=== PATIENT | female | born 1995 | race Caucasian/White ===

== ENCOUNTER 2022-05-25 18:16 | Outpatient (REF) | payer OTHER, SELFPAY ==
[2022-05-27 11:02] LABS: COVID-19 RT-PCR UVMMC Result Negative (Negative)
== END 2022-05-25 18:17 | disposition home or self-care (01) ==
LOC: LBN 18:16
PROVIDERS: Visit Provider Physician Assistant Medical
DX: Z20.822 Contact with and (suspected) exposure to COVID-19 (principal); J02.9 Acute pharyngitis, unspecified
CPT/HCPCS: U0003; 87070

== ENCOUNTER 2022-06-22 16:00 | Outpatient (REF) | payer OTHER, SELFPAY ==
[2022-06-22 21:10] LABS: HCT 42.9 % (36.0-46.0); HGB 14.5 g/dL (11.2-15.7); MCH 31.8 pg (27.0-33.0); MCHC 33.8 % (32.0-36.0); MCV 94 fL (80-95); MPV 11.2 fL (8.0-11.0); Platelet Count 243 10^3/uL (130-400); RBC 4.56 10^6/uL (3.93-5.22); RDW 11.9 % (11.7-14.6); RDW-SD 41.3 fL; WBC 6.96 10^3/uL (4.4-10.8)
[2022-06-22 21:25] LABS: Hemoglobin A1C 4.9 % (<5.7)
[2022-06-22 21:32] LABS: Anion Gap 8.3 mmol/L (3-11); BUN 8 mg/dL (7-18); CO2 25.7 mmol/L (21.0-32.0); CREATININE 0.8 mg/dL (0.55-1.02); Calcium 9.5 mg/dL (8.5-10.1); Chloride 107 mmol/L (98-107); Estimated GFR 102.86 (mL/min/1.73m2); Glucose 89 mg/dL (74-106); Potassium 4.9 mmol/L (3.5-5.1); Sodium 141 mmol/L (136-145)
== END 2022-06-22 16:01 | disposition home or self-care (01) ==
LOC: NCHCN 16:00
PROVIDERS: Visit Provider Nurse Practitioner Family
DX: K20.0 Eosinophilic esophagitis (principal); G47.9 Sleep disorder, unspecified; Z13.1 Encounter for screening for diabetes mellitus
CPT/HCPCS: 80048; 85027; 83036; 84443

== ENCOUNTER 2022-06-29 16:21 | Outpatient (REF) | payer OTHER, SELFPAY ==
[2022-07-01 11:55] LABS: COVID-19 RT-PCR UVMMC Result Negative (Negative)
== END 2022-06-29 16:22 | disposition home or self-care (01) ==
LOC: LBN 16:21
PROVIDERS: Visit Provider Physician Assistant Medical
DX: Z20.822 Contact with and (suspected) exposure to COVID-19 (principal); R05.8 Other specified cough
CPT/HCPCS: U0003

== ENCOUNTER 2022-08-03 17:06 | Outpatient (CLI) | payer OTHER, SELFPAY ==
--- NOTE | 2022-08-03 | DI.RAD_ITS ---
Exam(s) XR WRIST RT COMPL NAVICULAR EXAM: XR WRIST RT COMPL NAVICULAR CLINICAL HISTORY: RT WRIST PAIN, M25.531,FELL ON OUTSTRETCHED HAND,? FX. TECHNIQUE: 2D digital imaging was performed. COMPARISON: No exams were available for comparison FINDINGS: Four views: No obvious fractures. However, on the lateral view there is a tiny 1 millimeter osteophytic density seen dorsally. This may represent a small fracture avulsion off the triquetrum. No obvious scaphoid fracture evident. Scapholunate distance is normal. Bone density normal. No osseous lesions. IMPRESSION: Subtle 1 millimeter calcific density noted dorsally which may be a subtle fracture fragment, such is off the dorsal triquetrum DATA REPOSITORY: RADIATION DOSE DELIVERED:
== END 2022-08-03 17:26 ==
PROVIDERS: PCP Nurse Practitioner Family; Visit Provider Physician Assistant Medical
DX: R93.7 Abnormal findings on diagnostic imaging of other parts of musculoskeletal system (principal)
CPT/HCPCS: 73110

== ENCOUNTER 2022-08-23 09:18 | Outpatient (CLI) | payer OTHER, SELFPAY ==
--- NOTE | 2022-08-23 08:00 | DI.RAD_ITS ---
Exam(s) XR WRIST RT LIMITED EXAM: XR WRIST RT LIMITED CLINICAL HISTORY: right wrist pain. TECHNIQUE: 2D digital imaging was performed of the right wrist. Two views were obtained. PA and la teral views were obtained. COMPARISON: CR XR WRIST RT COMPL NAVICULAR from 08/03/2022 FINDINGS: BONES: The tiny density on the dorsum of the wrist is again seen and unchanged. No new fracture or d islocation is appreciated. No bony destructive lesion is seen. JOINTS: The carpal bones are normally aligned. SOFT TISSUE: Normal. IMPRESSION: Stable tiny density at the dorsum of the wrist which may represent a avulsed triquetral fracture. DATA REPOSITORY: RADIATION DOSE DELIVERED:
== END 2022-08-23 09:19 | disposition home or self-care (01) ==
LOC: DIORS 09:18
PROVIDERS: PCP Nurse Practitioner Family; Referring Provider Nurse Practitioner Family; Visit Provider Student in an Organized Health Care Education/Training Program
DX: M25.531 Pain in right wrist (principal); S62.111A Displaced fracture of triquetrum [cuneiform] bone, right wrist, initial encounter for closed fracture
CPT/HCPCS: 73100

== ENCOUNTER 2022-10-05 00:48 | Outpatient (CLI) | payer OTHER, SELFPAY ==
--- NOTE | 2022-10-05 07:30 | DI.MRI_ITS ---
Exam(s) MR UPPER JOINT RT WO EXAM: MR UPPER JOINT RT WO CLINICAL HISTORY: pain, injury,FX TRIQUESTRAL BONE RT WRIST,S62.111A. TECHNIQUE: Multiplanar multisequence MRI was performed. COMPARISON: Comparison is made with prior examinations. FINDINGS: BONES: There is mild edema seen in the dorsal aspect of the scaphoid. There is also mild marrow christi a seen in the triquetral bone. JOINTS: The radiocarpal joint is unremarkable. The carpal joints are unremarkable. TENDONS: Flexors: Unremarkable. Extensors: Unremarkable. MUSCLES: Unremarkable. MEDIAN NERVE: Unremarkable on this noncontrast examination. ULNAR NERVE: Unremarkable on this noncontrast examination. SOFT TISSUES: There is mild edema in the soft tissues on the dorsum of the wrist, posterior to the pr oximal carpal row. No focal fluid collection is seen. LIGAMENTS: The scapholunate ligament anteriorly is indistinct and a partial tear cannot be excluded. TRIANGULAR FIBROCARTILAGE: Unremarkable. OTHER: IMPRESSION: 1. Indistinct appearance of the scapholunate ligament anteriorly in partial tear should be considered . 2. Mild edema seen in the dorsal aspect of the scaphoid and triquetral bone. 3. Mild edema in the soft tissues on the dorsum of the wrist adjacent to the proximal carpal row. No focal fluid collection is seen. DATA REPOSITORY:
== END 2022-10-05 01:08 ==
LOC: DI 00:49
PROVIDERS: PCP Nurse Practitioner Family; Visit Provider Student in an Organized Health Care Education/Training Program
DX: S62.111A Displaced fracture of triquetrum [cuneiform] bone, right wrist, initial encounter for closed fracture (principal)
CPT/HCPCS: 73221

== ENCOUNTER 2022-12-12 15:03 | Outpatient (REF) | payer BC, SELFPAY ==
[2022-12-14 10:00] LABS: HBs Antibody, Quant 32.8 mIU/mL (See Note); Hepatitis B Surface Ab Positive (See Note)
== END 2022-12-12 15:04 | disposition home or self-care (01) ==
LOC: NCHCN 15:03
PROVIDERS: PCP Nurse Practitioner Family; Visit Provider Nurse Practitioner Family
DX: Z13.89 Encounter for screening for other disorder (principal); Z01.84 Encounter for antibody response examination
CPT/HCPCS: 86706

== ENCOUNTER 2023-01-09 15:30 | Outpatient (REF) | payer BC, SELFPAY | END 2023-01-09 15:31 | disposition home or self-care (01) | LOC: LBN 15:30 | PROVIDERS: PCP Nurse Practitioner Family; Visit Provider Physician Assistant Medical | DX: Z13.9 Encounter for screening, unspecified (principal) | CPT/HCPCS: 87480; 87510; 87660 ==

== ENCOUNTER 2023-03-13 19:38 | Outpatient (REF) | payer BC, SELFPAY ==
[2023-03-13 14:45] LABS: Source Nasal/Nares
[2023-03-13 15:51] LABS: Abs Immature Grans 0.03 10^3/uL (0.0-0.06); Absolute Basophil Count 0.03 10^3/uL (0.0-0.2); Absolute Eosinophil Count 0.09 10^3/uL (0.0-0.7); Absolute Lymphocyte Count 1.81 10^3/uL (1.2-3.4); Absolute Neutrophil Count 6.68 10^3/uL (1.2-6.7); Basophils % 0.3; HGB 15.3 g/dL (11.2-15.7); Immature Grans % 0.3; Lymphocytes % 19.6; MCH 31.9 pg (27.0-33.0); MCV 94 fL (80-95); MPV 10.7 fL (8.0-11.0); Monocytes % 6.5; Neutrophils % 72.3; Platelet Count 270 10^3/uL (130-400); RBC 4.79 10^6/uL (3.93-5.22); RDW 11.7 % (11.7-14.6); RDW-SD 40.3 fL; WBC 9.24 10^3/uL (4.4-10.8)
[2023-03-13 16:16] LABS: ALT 24 U/L (14-59); AST 17 U/L (15-37); Albumin 4.5 g/dL (3.4-5.0); Alkaline Phosphatase 77 U/L (46-116); Anion Gap 10.5 mmol/L (3-11); BUN 15 mg/dL (7-18); Bilirubin, Total 1.2 mg/dL (0.2-1.0); CO2 27.5 mmol/L (21.0-32.0); CREATININE 0.8 mg/dL (0.55-1.02); Calcium 9.6 mg/dL (8.5-10.1); Chloride 100 mmol/L (98-107); Estimated GFR 102.22 (mL/min/1.73m2); Glucose 94 mg/dL (74-106); Lipase 32 U/L (16-77); Potassium 3.9 mmol/L (3.5-5.1); Sodium 138 mmol/L (136-145); Total Protein 8.1 g/dL (6.4-8.2)
[2023-03-13 17:29] LABS: COVID-19 PCR Negative (Negative)
== END 2023-03-13 19:39 | disposition home or self-care (01) ==
LOC: LBN 19:38
PROVIDERS: PCP Nurse Practitioner Family; Visit Provider Physician Assistant Medical
DX: R11.2 Nausea with vomiting, unspecified (principal); J02.9 Acute pharyngitis, unspecified; Z20.822 Contact with and (suspected) exposure to COVID-19
CPT/HCPCS: 80053; 83690; 87635; 85025; 87070

== ENCOUNTER → 2023-12-30 03:12 | Outpatient (CLI) | payer OTHER, SELFPAY ==
--- NOTE | 2023-12-30 | DI.MRI_ITS ---
Exam(s) MR UPPER JOINT RT WO EXAM: MR UPPER JOINT RT WO CLINICAL HISTORY: PAIN OF R SHOULDER, M25.511,? rotator cuff tear,pain despite ct. TECHNIQUE: Multiplanar multisequence MRI was performed. COMPARISON: No exams were available for comparison FINDINGS: BONES: There is no fracture or contusion pattern. JOINTS: The acromioclavicular joint is normal. The glenohumeral joint is normal. No joint effusion. TENDONS: Supraspinatus: No evidence of a supraspinatus tendon tear. There may be mild tendinosis of the supra spinatus tendon. Infraspinatus: Unremarkable. Subscapularis: Unremarkable. Teres Minor: Unremarkable. Biceps and [place]: Unremarkable. MUSCLES: Unremarkable. GLENOID LABRUM: Diminutive anterior superior labrum. The labrum is otherwise unremarkable on this no ncontrast examination. SOFT TISSUES: Unremarkable. LIGAMENTS: There is thickening of the middle glenohumeral ligament. This can be related to a sprain. Anterior superior labrum appears diminutive. This may be part of the [place] complex. OTHER: Subacromial and subdeltoid bursae are unremarkable. IMPRESSION: 1. No evidence of a rotator cuff tear. 2. No evidence of a labral tear on this noncontrast examination. 3. Thickening of the middle glenohumeral ligament which can be seen with a sprain. Please see the ab cline discussion for complete details. DATA REPOSITORY:
== END ==
PROVIDERS: PCP Nurse Practitioner Family; Visit Provider Nurse Practitioner Family
DX: M25.511 Pain in right shoulder (principal)
CPT/HCPCS: 73221

== ENCOUNTER 2024-01-15 15:05 | Outpatient (CLI) | payer OTHER, SELFPAY ==
--- NOTE | 2024-01-15 14:45 | DI.RAD_ITS ---
Exam(s) XR SHOULDER RT COMPLETE 2+V EXAM: XR SHOULDER RT COMPLETE 2+V CLINICAL HISTORY: right AC joint pain. TECHNIQUE: 2D digital imaging was performed. Two views. COMPARISON: No exams were available for comparison FINDINGS: BONES: No acute fracture is present. No bony destructive lesion is seen. JOINTS: No dislocation present. SOFT TISSUE: Normal. IMPRESSION: Unremarkable radiographs of the right shoulder. DATA REPOSITORY: RADIATION DOSE DELIVERED:
== END 2024-01-15 15:06 | disposition home or self-care (01) ==
LOC: DIORS 15:06
PROVIDERS: PCP Nurse Practitioner Family; Visit Provider Physician Assistant
DX: M25.511 Pain in right shoulder (principal)
CPT/HCPCS: 73030

== ENCOUNTER 2024-09-09 10:57 | Emergency (ER) | payer OTHER, SELFPAY ==
[2024-09-09] VITALS (83 sets, daily range): BP systolic 117–147; BP diastolic 71–99; PULSE 78–102; RESP 16–20; TEMP 36.5–36.6; O2SAT 87–100
--- NOTE | 2024-09-09 11:00 | DI.RAD_ITS ---
Exam(s) XR HAND RT COMPLETE EXAM: XR HAND RT COMPLETE CLINICAL HISTORY: dog bite dorsal aspect. TECHNIQUE: 2D digital imaging was performed of the right hand. Three images were obtained. AP, late ral and oblique views were obtained. COMPARISON: CR XR WRIST RT COMPL NAVICULAR from 08/03/2022 CR XR WRIST RT LIMITED from 08/23/2022 FINDINGS: BONES: No acute fracture is present. No bony destructive lesion is seen. JOINTS: No dislocation present. SOFT TISSUE: There is soft tissue swelling seen around the 1st and 2nd metacarpophalangeal joints. S mall pockets of air are seen in the soft tissues. No radiopaque foreign bodies are seen. IMPRESSION: No acute fracture or dislocation. No radiopaque foreign bodies. DATA REPOSITORY: RADIATION DOSE DELIVERED:
--- NOTE | 2024-09-09 11:00 | DI.RAD_ITS ---
Exam(s) XR THUMB LT EXAM: XR THUMB LT EXAM DATE/TIME: CLINICAL HISTORY: dog bite. TECHNIQUE: 2D digital imaging was performed of the left finger. Three views were obtained. PA/AP, oblique, and lateral views were obtained. COMPARISON: None. FINDINGS: BONES: No acute fracture is present. No bony destructive lesion is seen. JOINTS: No dislocation is present. SOFT TISSUE: There is soft tissue swelling of the thumb. No radiopaque foreign body or soft tissue g as is seen. IMPRESSION: No evidence of acute fracture or dislocation. DATA REPOSITORY: RADIATION DOSE DELIVERED:
[2024-09-09] MEDS: MORPHine IR 15 MG TAB PO (11:26)
[2024-09-09] MEDS: Acetaminophen 325 MG TAB 650 MG PO (11:55)
[2024-09-09] MEDS: HYDROmorphone 2 MG/ML SYR 1 MG IM (13:16)
[2024-09-09] MEDS: Lidocaine 1% Multi-Dose 50 ML VIAL (13:27)
[2024-09-09] MEDS: Ondansetron O.D.T. 4 MG TABEF PO (14:12)
[2024-09-09] MEDS: Amoxicillin 875/Clav. 125 TAB PO (15:02)
--- NOTE | 2024-09-09 15:40 | ED.GENADUL_ITS ---
Discharge Plan Disposition Patient Disposition: Home Condition: Stable Discharge Details Clinical Impression: Dog bite of multiple sites of right hand and fingers, Dog bite of multiple sites of left hand and fingers Primary Care Provider: Stella Fregoso ED Provider: Mabel Don Home Meds and New Rx's Prescriptions: New amoxicillin-pot clavulanate 875-125 mg tablet 1 tab PO BID Qty: 20 0RF oxycodone-acetaminophen [Percocet] 5-325 mg tablet 1 tab PO Q6H PRNQty: 10 0RF Continued Liletta 20.4 mcg/24 hr (8 yrs) 52 mg intrauterine device 1 device intrauterine ONCE Rx Instructions: as a single dose ondansetron HCl 4 mg tablet 4 mg PO ONCE PRN rizatriptan 5 mg tablet 5 mg PO ONCE Rx Instructions: may repeat once after at least 2 hours cetirizine 10 mg tablet 10 mg PO DAILY PRN triamcinolone acetonide 55 mcg/actuation aerosol 1 mcg intranasal DAILY famotidine 10 mg tablet 10 mg PO DAILY lamotrigine [Lamictal] 100 mg tablet 100 mg PO BID Qty: 7 0RF Discharge Instructions Instructions: Animal Bites ED Additional Instructions: Change your dressing every 48 hours take the antibiotic as prescribed Follow-up with orthopedics this week for reassessment You did have injury to muscle, strength and sensation are preserved this is reassuring Take ibuprofen per package instructions as needed for pain and Tylenol for breakthrough pain, I did order Percocet, please do not exceed 1 g of Tylenol daily Keep your hands dry and refrain from submerging in water Your sutures will need to be removed in 12 days, please return immediately with spreading redness, worsening pain fever or chills refrain From moving your left thumb is much as possible until it is begins to heal Stand Alone Forms: Work Release Referrals: Stella Fregoso [Primary Care Provider] - Harsh Grewal MD [ [facility] STAFF PHYSICIAN] - 2 days HPI General Date/Time Provider Initiated Documentation: 09/09/24 11:09 . HPI Narrative: The patient is a 28-year-old female who presents following a dog bite. She was working on a puzzle toy with her dog when he attempted to grab a treat and bit her hands bilaterally. She reports that the dog is up-to-date with its rabies vaccinations, and she herself is current with her tetanus shots. She does not report any additional injuries. Related Data Home Medications ?Medication ?Instructions ?Recorded ?Confirmed cetirizine 10 mg tablet 10 mg PO DAILY PRN 07/06/22 09/09/24 ondansetron HCl 4 mg tablet 4 mg PO ONCE PRN 07/06/22 09/09/24 rizatriptan 5 mg tablet 5 mg PO ONCE 07/06/22 09/09/24 triamcinolone acetonide 55 1 mcg intranasal DAILY 07/06/22 09/09/24 mcg/actuation nasal spray,aerosol famotidine 10 mg tablet 10 mg PO DAILY 08/07/22 09/09/24 levonorgestrel 20.4 mcg/24 hr (up 1 device intrauterine ONCE 04/01/24 09/09/24 to 8 yrs) 52 mg intrauterine device (Liletta) lamotrigine 100 mg tablet 100 mg PO BID #7 tabs 06/16/24 09/09/24 (Lamictal) amoxicillin 875 mg-potassium 1 tab PO BID #20 tabs 09/09/24 clavulanate 125 mg tablet oxycodone-acetaminophen 5 mg-325 1 tab PO Q6H PRN #10 tabs 25 mg tablet (Percocet) Previous Rx's ?Medication ?Instructions ?Recorded lamotrigine 100 mg tablet 100 mg PO BID #7 tabs 06/16/24 (Lamictal) amoxicillin 875 mg-potassium 1 tab PO BID #20 tabs 09/09/24 clavulanate 125 mg tablet oxycodone-acetaminophen 5 mg-325 1 tab PO Q6H PRN #10 tabs 25 mg tablet (Percocet) Allergies Allergy/AdvReac Type Severity Reaction Status Date / Time buspirone (From BuSpar) AdvReac Mild Other (See Unverified 09/09/24 11:09 Comment) sumatriptan (From Imitrex) AdvReac Mild Other (See Unverified 09/09/24 11:09 Comment) General Stated Complaint: AnimalBite TONI: 4 Exam Narrative Exam Narrative: Appearance: Normal. Vital signs: Within normal limits. HEENT: Within normal limits. Respiratory: Within normal limits. Cardiovascular: Gastrointestinal: Genitourinary: Lymphatic: Back, Musculoskeletal: Extremities: There is an approximately 2.5-inch laceration on the dorsal aspect of the patient's right hand. There is evidence of a muscle belly injury, but no tenderness injury. The patient has great preserved flexion and extension and is neurovascularly intact. The patient's left thumb has lacerations on the dorsal and volar aspects. Range of motion and strength are intact and sensation is intact. Skin: Warm and dry, no rash. Neurological: The patient had multiple exams to be sure that neurovascularly she was intact. Psychiatric: Other observations: Course Vital Signs Vital signs: Vital Signs Temperature 36.6 C 09/09/24 11:03 Pulse 96 H 09/09/24 11:03 Respiratory Rate 20 09/09/24 11:03 Blood Pressure 147/99 H 09/09/24 11:03 Pulse Oximetry 99 09/09/24 11:03 Temperature 36.5 C 09/09/24 15:26 Pulse 85 09/09/24 15:26 Respiratory Rate 16 09/09/24 15:26 Blood Pressure 121/74 09/09/24 15:26 Blood Pressure Mean 89 09/09/24 14:44 Blood Pressure Position Sitting 09/09/24 11:07 Pulse Oximetry 99 09/09/24 15:26 Oxygen Delivery Method Room Air 09/09/24 11:07 Oxygen Flow Rate 0 09/09/24 11:07 Pain Level 4 09/09/24 15:26 Medical Decision Making Wounds were irrigated copiously. Seven vertical mattress sutures were applied in the right hand. 5-0 Prolene utilized wound size 2.5 inches Confirmed imaging X-rays of bilateral hands do not show evidence of acute fracture. Initial Assessment: 28-year-old female presents post dog bite with bilateral hand injuries. Dog is up to date with rabies vaccines, and her tetanus is current. No additional injuries reported. ED Course: - X-rays of bilateral hands: No evidence of acute fracture (read by me). - Augmentin ordered. - Dilaudid administered for discomfort. - Vomiting episode post-Dilaudid: Zofran given. - Wounds irrigated copiously. - Seven vertical mattress sutures applied to the right hand. - Orthopedics consulted (Dr. Post) due to severity of injury. - Return precautions reviewed. - Work note supplied. - Percocet provided as needed for pain. - Augmentin prescribed for home use. - Discharged home in stable condition with stable vitals. Final Assessment: Patient treated for bilateral hand injuries post dog bite. X- rays showed no fractures. Wounds were sutured, and medications for pain and infection were provided. Orthopedics to follow up outpatient. Discharged in stable condition. Clinical Impression: - Post dog bite status Disposition: - Discharge: Home in stable condition. - Follow-Up: Orthopedics outpatient follow-up. MDM Components Evaluation: - Number of Differential Diagnoses or Management Options: Post dog bite status. - Amount and Complexity of Data Reviewed: X-rays of bilateral hands, orthopedic consultation. - Risk of Complication and Morbidity or Mortality: Risk of infection managed with Augmentin, pain managed with Percocet. Quality:SDOH Health Related Social Needs: No Data to Display PFSH All Active Problems (Updated 09/09/24 @ 15:02 by YAKELIN Bynum) Dog bite of multiple sites of left hand and fingers (Acute) Dog bite of multiple sites of right hand and fingers (Acute) Tendinopathy of right biceps tendon (Acute) Pain in right acromioclavicular joint (Acute) Bursitis of right shoulder (Acute) Partial tear of right scapholunate ligament (Acute) Fracture of triquetral bone of right wrist (Acute) Facial pressure (Acute) Medical History Acute cystitis Cough Ear pain, left Eosinophilic esophagitis Sinus congestion Sleep disturbance Sore throat Upper respiratory infection Surgical History Whiting teeth removed Family History Mother Depression Anxiety Father Hypertension Brother Anxiety Depression Eosinophilic esophagitis Social History Smoking/Tobacco Use Status: Former Tobacco Use Tobacco: How many years used: 4 Smoking risk assessment performed?: Yes
== END 2024-09-09 16:21 | disposition home or self-care (01) ==
PROVIDERS: Emergency Provider Physician Assistant; PCP Nurse Practitioner Family
DX: S61.052A Open bite of left thumb without damage to nail, initial encounter (principal); S61.451A Open bite of right hand, initial encounter; W54.0XXA Bitten by dog, initial encounter; Y93.89 Activity, other specified; Y92.018 Other place in single-family (private) house as the place of occurrence of the external cause
CPT/HCPCS: 12001; 96372; 99283; 73130; 73140; J1171; J2003

== ENCOUNTER 2024-10-27 10:25 | Outpatient (CLI) | payer OTHER, SELFPAY ==
--- NOTE | 2024-10-27 09:15 | DI.RAD_ITS ---
Exam(s) XR THUMB LT EXAM: XR THUMB LT EXAM DATE/TIME: CLINICAL HISTORY: thumb pain s/p dog bite. TECHNIQUE: 2D digital imaging was performed. Two images were obtained. COMPARISON: Comparison examination is 09/09/2024. FINDINGS: BONES: No acute fracture is present. No bony destructive lesion is seen. JOINTS: No dislocation present. SOFT TISSUE: Normal. IMPRESSION: No evidence of an acute or healing fracture or dislocation. DATA REPOSITORY: RADIATION DOSE DELIVERED:
== END 2024-10-27 10:26 | disposition home or self-care (01) ==
LOC: DIORS 10:25
PROVIDERS: PCP Nurse Practitioner Family; Visit Provider Physician Assistant
DX: S61.452A Open bite of left hand, initial encounter (principal); S61.259A Open bite of unspecified finger without damage to nail, initial encounter; W54.0XXA Bitten by dog, initial encounter
CPT/HCPCS: 73140

== ENCOUNTER → 2025-05-11 00:06 | Outpatient (CLI) | payer OTHER, SELFPAY ==
--- NOTE | 2025-05-11 | DI.MRI_ITS ---
Exam(s) MR UPPER EXTREMITY LT WO CLINICAL HISTORY: TRAUMATIC TRIGGER THUMB, S/P DOG BITE,m65.312. TECHNIQUE: Multiplanar multisequence MRI Examination was performed. CONTRAST MATERIAL: Noncontrast COMPARISON: None FINDINGS: Bones: There is no fracture or contusion pattern. No bone marrow edema is present Muscles: There is no muscular edema, myositis or focal collection. No muscular injury. Tendons: The flexor pollicis longus tendon appears intact. There is edema in the tendon sheath at the level of the metacarpophalangeal joint. There is no tendon subluxation. The A1 pulleys not discretely identified. This may be secondary to due to limitations of the scan and mild motion. A1 nicolasa tear not excluded. IMPRESSION: Mild tenosynovitis of the flexor pollicis longus tendon at the level of the metacarpophalangeal joint. DATA REPOSITORY:
== END ==
LOC: DI 00:06
PROVIDERS: PCP Nurse Practitioner Family; Visit Provider Student in an Organized Health Care Education/Training Program
DX: M65.312 Trigger thumb, left thumb (principal)
CPT/HCPCS: 73218

== ENCOUNTER 2025-05-11 12:04 | Outpatient (CLI) | payer OTHER, SELFPAY ==
[2025-05-13 12:38] LABS: TB Interpretation Negative (Negative); TB1 Ag minus Nil 0.05 IU/mL; TB2 Ag minus Nil 0.22 IU/mL
== END 2025-05-11 12:05 | disposition home or self-care (01) ==
LOC: LBO 12:05
PROVIDERS: PCP Nurse Practitioner Family; Visit Provider Nurse Practitioner Family
DX: Z11.1 Encounter for screening for respiratory tuberculosis (principal)
CPT/HCPCS: 36415; 86480

== ENCOUNTER 2025-06-10 10:18 | Day surgery (SDC) | payer OTHER, SELFPAY ==
--- NOTE | 2025-06-10 10:07 | W.PM.OP ---
Operative Note Operative Note PRE-OP DIAGNOSIS: Left thumb post?traumatic trigger finger PROCEDURE: Left thumb finger trigger release, CPT# 39054 SURGEON: Harsh Grewal CORDWOOD CUTTER: None None ANESTHESIA TYPE: Local By Surgeon Refer to Anesthesia Record ESTIMATED BLOOD LOSS: 2 TOURNIQUET TIME: 0 COMPLICATIONS: None Patient was transported to: same day Patient's condition: stable Indications: Please see complete medical record for details. Findings: Relatively normal thumb A1 nicolasa. Flexor tendon with mild thickening likely from old injury correlating to the MRI abnormality at the level of the proximal aspect of the proximal phalanx. Adhesions and scarring from the skin scar and about the volar proximal proximal phalanx to the metacarpal joint and distal palmar area to the flexor tendon sheath and nicolasa area. Digital nerve visualized along the ulnar margin of the field. Procedure Description: In the operating room, the patient was positioned supine on the stretcher. All bony prominences were padded. Preoperative antibiotics were omitted. The correct patient, procedure, and side of the procedure were all verified prior to beginning. Local anesthesia was induced about the site with 10cc of 1% lidocaine containing epinephrine buffered with 1 cc of sodium bicarbonate. The left hand was prepped and draped in the usual sterile fashion. Proper analgesia was confirmed. A small volar transverse approach was made overlying the thumb MCP joint at the distal aspect of the skin crease. Soft tissues scarring was released, digital nerve identified and carefully retracted, and with tissues maintained to the sides, the relatively normal A1 nicolasa was exposed. The release was started centrally with a knife and completed at the proximal and distal margins with tenotomy scissors. The release included combined annular variable nicolasa. Care was taken to protect the flexor tendon. The tendon was inspected and showed some bulbous enlargement may be correlating to the posttraumatic injury, but no significant tearing or problems. Appropriate flexor tendon excursion was readily confirmed. The patient readily demonstrated full range of motion of the finger without triggering. There was a mild click type feeling on the other side of the MCP joint dorsally, which the patient had been noticing recently, but separate from the limiting thumb triggering for the past few months. Given the posttraumatic and scar setting, care was taken to inspect widely including more proximally and distally for any other sites of mechanical problems. The old healed scar along the mid volar aspect of the thumb proximal phalanx was confirmed and release from the underlying tissues flexor tendon and probably oblique nicolasa visualized more distally. The small incision was irrigated and then dried. Hemostasis was appropriate. The incision was closed using 3-0 nylon in a horizontal mattress fashion. Xeroform was applied followed by gauze and the hand was gently compressed with an Yuri bandage. The patient tolerated local anesthesia without complication and was transferred out of the operating room in a stable condition. Date of Procedure: 06/10/25
--- NOTE | 2025-06-10 10:17 | W.PM.DSUDISC ---
Date of service: 06/10/25 Discharge Plan Disposition Patient Disposition: Home Condition: Stable Discharge Details Attending Provider: Harsh Grewal Primary Care Provider: Stella Fregoso Home Meds and New Rx's Prescriptions: Continued propranolol 10 mg tablet 10 mg PO BID acetylcysteine 600 mg capsule 600 mg PO DAILY ondansetron HCl 4 mg tablet 4 mg PO ONCE PRN rizatriptan 5 mg tablet 5 mg PO ONCE Rx Instructions: may repeat once after at least 2 hours cetirizine 10 mg tablet 10 mg PO DAILY PRN triamcinolone acetonide 55 mcg/actuation aerosol 1 mcg intranasal DAILY escitalopram oxalate [Lexapro] 5 mg tablet 5 mg PO DAILY alprazolam [Xanax] 0.5 mg tablet 0.5 mg PO ONCE PRN (Reason: Claustrophobia) Qty: 2 0RF Rx Instructions: Take 1 60 minutes prior to MRI. May take an additional 1 if still anxious 30 minutes prior to MRI. famotidine 10 mg tablet 10 mg PO DAILY lamotrigine [Lamictal] 100 mg tablet 100 mg PO BID Qty: 7 0RF Discharge Instructions Additional Instructions: Surgery: Left thumb trigger release 06/10/2025 Activity: Protect hand for a few weeks. Gently increase thumb motion and hand gripping to prevent stiffness. Recommend elevation to minimize swelling and discomfort. Prescriptions: None Resume home medicines, use [id number] Tylenol (acetaminophen) as needed for mild pain and ibuprofen (Motrin) or naproxen (Aleve) as needed for moderate to severe pain and swelling. Dressings: Leave dressing in place for 2-3 days. May then remove and leave open to air or cover incision with Band-Aid. May get wet after 5 days. Follow-up: 10-[address] Grewal. Call/text/WebEx with any questions Please call the office during business hours with any questions or concerns. Stand Alone Forms: Vibha Cordero (ESCOBARU), Portal Information Referrals: Harsh Grewal MD [ [facility] STAFF PHYSICIAN, Orthopaedic Surgical] - 06/22/25 10:30 am Discharge Orders Discharge Orders: Discharge Order (Routine); Ordered 06/10/25 Ordered By: Hector Alicia Discharge Data Discharge Date/Time-TO BE ENTERED AT DEPARTURE: 06/10/25 13:21 Discharge Comment: DC to home DS: Diagnosis Discharge Diagnosis (1) Trigger finger of left thumb: Status: Acute
[2025-06-10 10:31] VITALS: BP 111/78; PULSE 84; RESP 14; TEMP 36.6; O2SAT 97
[2025-06-10] MEDS: Lidocaine 1% Pres-Free W/EPI 1/200,000 10 ML VIAL (12:54)
[2025-06-10] MEDS: LORazepam 1 MG TAB 2 MG PO (12:55)
[2025-06-10] MEDS: Sodium Bicarbonate 50 MEQ/50 ML VIAL (12:55)
[2025-06-10 13:12] VITALS: BP 116/88; PULSE 73; RESP 16; TEMP 36.4; O2SAT 98
== END 2025-06-10 13:21 | disposition home or self-care (01) ==
LOC: SUR 10:18
PROVIDERS: PCP Nurse Practitioner Family; Visit Provider Student in an Organized Health Care Education/Training Program
PROC: (CPT 26055; principal; 2025-06-10 11:30)
DX: M65.312 Trigger thumb, left thumb (principal)
CPT/HCPCS: 26055; J2004

== ENCOUNTER 2025-06-21 17:13 | Outpatient (CLI) | payer OTHER, SELFPAY ==
[2025-06-21 18:07] LABS: Cannabinoids THC Negative (Negative)
== END 2025-06-21 17:14 | disposition home or self-care (01) ==
LOC: NCHCN 17:13
PROVIDERS: PCP Nurse Practitioner Family; Visit Provider Nurse Practitioner Family
DX: Z02.83 Encounter for blood-alcohol and blood-drug test (principal)
CPT/HCPCS: 80307